=== PATIENT | male | born 1965 | race Caucasian/White ===

== ENCOUNTER 2017-05-24 09:21 | Emergency (ER) | payer OTHER ==
[2017-05-24 10:09] LABS: ADD MAN DIFF? NO
[2017-05-24] MEDS: SOD CHLORIDE 0.9% 1,000 ML IV (10:13)
[2017-05-24] MEDS: ONDANSETRON 4 MG INJ IV ×2 (10:13→11:35)
[2017-05-24 10:14] LABS: BASOPHILS % 0.5 % (0.0-2.0); EOSINOPHILS % 0.1 % (0.0-7.0); HEMATOCRIT 33.5 % (42.0-52.0); HEMOGLOBIN 11.6 g/dl (14.0-18.0); INR 1.04; LYMPHOCYTES # 1.3 10^3/ul (0.8-2.9); LYMPHOCYTES % 15.1 % (15.0-51.0); MEAN CORPUSCULAR HEMOGLOBIN 29.3 pg (29.0-33.0); MEAN CORPUSCULAR HGB CONC 34.6 g/dl (32.0-37.0); MEAN CORPUSCULAR VOLUME 84.6 fl (82.0-101.0); MEAN PLATELET VOLUME 11.6 fl (7.4-10.4); MONOCYTE # 0.3 10^3/ul (0.3-0.9); MONOCYTES % 3.4 % (0.0-11.0); NEUTROPHIL # 6.7 10^3/ul (1.6-7.5); NEUTROPHILS % 80.5 % (39.0-77.0); PLATELET COUNT 221 10^3/UL (140-415); PROTIME 13.7 Sec (11.9-14.9); PT RATIO 1.1; RED BLOOD COUNT 3.96 10^6/ul (4.70-6.10); RED CELL DISTRIBUTION WIDTH 12.7 % (11.5-14.5)
[2017-05-24 10:14] LABS: WHITE BLOOD COUNT 8.4 10^3/ul (4.8-10.8)
[2017-05-24 10:15] LABS: PARTIAL THROMBOPLASTIN TIME 24.8 Sec (25.0-35.0)
[2017-05-24 10:17] LABS: ALANINE AMINOTRANSFERASE 24 IU/L (13-69); ALBUMIN 4.3 g/dl (3.3-4.9); ALBUMIN/GLOBULIN RATIO 1.04; ALKALINE PHOSPHATASE 110 IU/L (42-121); ANION GAP 17 (8-16); ASPARTATE AMINO TRANSFERASE 23 IU/L (15-46); BILIRUBIN,INDIRECT 1.2 mg/dl (0-1.1); BILIRUBIN,TOTAL 1.2 mg/dl (0.2-1.3); BLOOD UREA NITROGEN 49 mg/dl (7-20); CALCIUM 9.3 mg/dl (8.4-10.2); CARBON DIOXIDE 23 mmol/L (21-31); CHLORIDE 104 mmol/L (97-110); GLUCOSE 286 mg/dl (70-220); LIPASE 104 U/L (23-300); POTASSIUM 4.3 mmol/L (3.5-5.1); SODIUM 140 mmol/L (135-144); TOTAL PROTEIN 8.4 g/dl (6.1-8.1)
[2017-05-24 10:32] LABS: LACTIC ACID 1.5 mmol/L (0.5-2.0)
[2017-05-24] MEDS: morphine 4 MG/ML VIAL IV (11:40)
[2017-05-24 12:14] LABS: ADD UMIC YES; UR ASCORBIC ACID NEGATIVE (NEGATIVE); UR BILIRUBIN (Dip) NEGATIVE (NEGATIVE); UR BLOOD (Dip) 1+ mg/dL (NEGATIVE); UR CLARITY CLEAR (CLEAR); UR COLOR YELLOW (YELLOW); UR GLUCOSE (Dip) 3+ mg/dL (NEGATIVE); UR KETONES (Dip) NEGATIVE (NEGATIVE); UR LEUKOCYTE ESTERASE (Dip) NEGATIVE Leu/ul (NEGATIVE); UR NITRITE (Dip) NEGATIVE (NEGATIVE); UR RBC 2 /HPF (0-5); UR SPECIFIC GRAVITY (Dip) 1.016 (1.003-1.030); UR TOTAL PROTEIN (Dip) 2+ mg/dl (NEGATIVE); UR UROBILINOGEN (Dip) NEGATIVE (NEGATIVE); UR WBC 1 /HPF (0-5)
== END 2017-05-24 13:12 | disposition home or self-care (01) ==
LOC: E/R 09:21
DX: I10 Essential (primary) hypertension (principal); E11.9 Type 2 diabetes mellitus without complications; R10.9 Unspecified abdominal pain; Z79.4 Long term (current) use of insulin
CPT/HCPCS: 36415; 74176; 80053; 81001; 82962; 83605; 83690; 85025; 85610; 85730; 93005; 96374; 96375; 96376; 99285-25

== ENCOUNTER 2017-10-01 13:27 | Emergency (ER) | payer OTHER ==
[2017-10-01] MEDS ORDERED: KETOROLAC 30 MG INJ IV (17:24)
[2017-10-01 17:37] LABS: ADD MAN DIFF? NO
[2017-10-01] MEDS: ONDANSETRON 4 MG INJ IV ×2 (17:42→22:58)
[2017-10-01] MEDS: SOD CHLORIDE 0.9% 1,000 ML IV (17:42)
[2017-10-01] MEDS: FAMOTIDINE 20 MG TAB PO (17:42)
[2017-10-01] MEDS: LIDOCAINE/MYLANTA 40 ML BTL PO (17:42)
[2017-10-01 17:43] LABS: WHITE BLOOD COUNT 9.2 10^3/ul (4.8-10.8)
[2017-10-01 17:43] LABS: BASOPHILS % 0.2 % (0.0-2.0); HEMATOCRIT 29.2 % (42.0-52.0); HEMOGLOBIN 10.4 g/dl (14.0-18.0); LYMPHOCYTES # 0.8 10^3/ul (0.8-2.9); LYMPHOCYTES % 8.6 % (15.0-51.0); MEAN CORPUSCULAR HEMOGLOBIN 30.2 pg (29.0-33.0); MEAN CORPUSCULAR HGB CONC 35.6 g/dl (32.0-37.0); MEAN CORPUSCULAR VOLUME 84.9 fl (82.0-101.0); MEAN PLATELET VOLUME 11.8 fl (7.4-10.4); MONOCYTE # 0.2 10^3/ul (0.3-0.9); MONOCYTES % 1.7 % (0.0-11.0); NEUTROPHIL # 8.2 10^3/ul (1.6-7.5); NEUTROPHILS % 89.1 % (39.0-77.0); PLATELET COUNT 155 10^3/UL (140-415); RED BLOOD COUNT 3.44 10^6/ul (4.70-6.10); RED CELL DISTRIBUTION WIDTH 13.1 % (11.5-14.5)
[2017-10-01] MEDS: morphine 2 MG INJ IV (17:43)
[2017-10-01 18:04] LABS: LACTIC ACID 2.1 mmol/L (0.5-2.0)
[2017-10-01 18:05] LABS: ALANINE AMINOTRANSFERASE 19 IU/L (13-69); ALBUMIN 4.3 g/dl (3.3-4.9); ALKALINE PHOSPHATASE 94 IU/L (42-121); ANION GAP 21 (8-16); ASPARTATE AMINO TRANSFERASE 27 IU/L (15-46); BILIRUBIN,INDIRECT 1.1 mg/dl (0-1.1); BILIRUBIN,TOTAL 1.1 mg/dl (0.2-1.3); BLOOD UREA NITROGEN 35 mg/dl (7-20); CALCIUM 9.6 mg/dl (8.4-10.2); CARBON DIOXIDE 23 mmol/L (21-31); CHLORIDE 105 mmol/L (97-110); CREATININE 1.16 mg/dl (0.61-1.24); GLUCOSE 266 mg/dl (70-220); LIPASE 65 U/L (23-300); POTASSIUM 4.6 mmol/L (3.5-5.1); SODIUM 144 mmol/L (135-144); TOTAL PROTEIN 8.2 g/dl (6.1-8.1)
[2017-10-01 18:16] LABS: TROPONIN-I < 0.010 ng/ml (0.000-0.120)
[2017-10-01] MEDS: METOCLOPRAMIDE 10 MG INJ IV (22:58)
[2017-10-01 23:12] LABS: AMPHETAMINE/METHAMPHETAMINE NEGATIVE (NEGATIVE); BARBITURATES NEGATIVE (NEGATIVE); BENZODIAZEPINES NEGATIVE (NEGATIVE); CANNABINOIDS NEGATIVE (NEGATIVE); COCAINE NEGATIVE (NEGATIVE); OPIATES POSITIVE (NEGATIVE)
[2017-10-01 23:24] LABS: ADD UMIC YES; UR ASCORBIC ACID NEGATIVE (NEGATIVE); UR BACTERIA FEW /HPF (NONE SEEN); UR BILIRUBIN (Dip) NEGATIVE (NEGATIVE); UR BLOOD (Dip) NEGATIVE (NEGATIVE); UR CLARITY CLEAR (CLEAR); UR COLOR YELLOW (YELLOW); UR GLUCOSE (Dip) 3+ mg/dL (NEGATIVE); UR KETONES (Dip) TRACE mg/dL (NEGATIVE); UR LEUKOCYTE ESTERASE (Dip) NEGATIVE Leu/ul (NEGATIVE); UR NITRITE (Dip) NEGATIVE (NEGATIVE); UR RBC 1 /HPF (0-5); UR SPECIFIC GRAVITY (Dip) 1.014 (1.003-1.030); UR TOTAL PROTEIN (Dip) 3+ mg/dl (NEGATIVE); UR UROBILINOGEN (Dip) NEGATIVE (NEGATIVE); UR WBC 1 /HPF (0-5)
== END 2017-10-02 00:51 | disposition home or self-care (01) ==
LOC: E/R 10-02 00:51
DX: N32.89 Other specified disorders of bladder (principal); R11.10 Vomiting, unspecified; E11.65 Type 2 diabetes mellitus with hyperglycemia; E86.0 Dehydration; I10 Essential (primary) hypertension; Z79.4 Long term (current) use of insulin
CPT/HCPCS: 36415; 74176; 80053; 80307; 81001; 82962; 83605; 83690; 84484; 85025; 93005; 96374; 96375; 96376; 99285-25

== ENCOUNTER 2017-10-03 16:13 | Inpatient (IN) | payer OTHER ==
[2017-10-03] MEDS: morphine 4 MG/ML VIAL IV (17:57)
[2017-10-03] MEDS: ONDANSETRON 4 MG INJ IV (17:57)
[2017-10-03] MEDS: PANTOPRAZOLE 40 MG INJ IV (17:57)
[2017-10-03 18:04] LABS: ADD MAN DIFF? NO
[2017-10-03 18:05] LABS: WHITE BLOOD COUNT 10.6 10^3/ul (4.8-10.8)
[2017-10-03 18:05] LABS: BASOPHILS % 0.1 % (0.0-2.0); HEMATOCRIT 29.1 % (42.0-52.0); HEMOGLOBIN 10.4 g/dl (14.0-18.0); LYMPHOCYTES # 0.8 10^3/ul (0.8-2.9); LYMPHOCYTES % 7.4 % (15.0-51.0); MEAN CORPUSCULAR HEMOGLOBIN 29.9 pg (29.0-33.0); MEAN CORPUSCULAR HGB CONC 35.7 g/dl (32.0-37.0); MEAN CORPUSCULAR VOLUME 83.6 fl (82.0-101.0); MEAN PLATELET VOLUME 11.4 fl (7.4-10.4); MONOCYTE # 0.5 10^3/ul (0.3-0.9); MONOCYTES % 4.8 % (0.0-11.0); NEUTROPHIL # 9.2 10^3/ul (1.6-7.5); NEUTROPHILS % 87.3 % (39.0-77.0); PLATELET COUNT 176 10^3/UL (140-415); RED BLOOD COUNT 3.48 10^6/ul (4.70-6.10); RED CELL DISTRIBUTION WIDTH 12.7 % (11.5-14.5)
[2017-10-03 18:25] LABS: INR 0.97; PARTIAL THROMBOPLASTIN TIME 21.3 Sec (25.0-35.0)
[2017-10-03 18:35] LABS: ALANINE AMINOTRANSFERASE 19 IU/L (13-69); ALBUMIN 4.1 g/dl (3.3-4.9); ALKALINE PHOSPHATASE 99 IU/L (42-121); ANION GAP 15 (8-16); ASPARTATE AMINO TRANSFERASE 24 IU/L (15-46); BILIRUBIN,INDIRECT 1.4 mg/dl (0-1.1); BILIRUBIN,TOTAL 1.4 mg/dl (0.2-1.3); BLOOD UREA NITROGEN 27 mg/dl (7-20); CALCIUM 9.5 mg/dl (8.4-10.2); CARBON DIOXIDE 29 mmol/L (21-31); CHLORIDE 100 mmol/L (97-110); CREATININE 1.15 mg/dl (0.61-1.24); GLUCOSE 246 mg/dl (70-220); POTASSIUM 4.4 mmol/L (3.5-5.1); SODIUM 140 mmol/L (135-144); TOTAL PROTEIN 7.8 g/dl (6.1-8.1)
[2017-10-03 18:46] LABS: TROPONIN-I < 0.012 ng/ml (0.000-0.120)
[2017-10-03] MEDS ORDERED: ONDANSETRON 4 MG INJ IV ×2 (20:00→21:00)
[2017-10-03] MEDS ORDERED: ACETAMINOPHEN 325 MG TAB PO ×2 (20:00→21:00)
[2017-10-03] MEDS ORDERED: NACL 0.9% 3 ML SYG IV (21:00)
[2017-10-03] MEDS ORDERED: hydrALAzine 20 MG INJ IV (21:00)
[2017-10-03] MEDS: SOD CHLORIDE 0.9% 1,000 ML IV (22:44)
[2017-10-03] MEDS: hydrALAzine 20 MG INJ IV (22:49)
[2017-10-04 01:27] LABS: ADD MAN DIFF? NO
[2017-10-04 01:30] LABS: BASOPHILS % 0.1 % (0.0-2.0); HEMATOCRIT 25.8 % (42.0-52.0); HEMOGLOBIN 9.2 g/dl (14.0-18.0); LYMPHOCYTES % 20.8 % (15.0-51.0); MEAN CORPUSCULAR HEMOGLOBIN 30.3 pg (29.0-33.0); MEAN CORPUSCULAR HGB CONC 35.7 g/dl (32.0-37.0); MEAN CORPUSCULAR VOLUME 84.9 fl (82.0-101.0); MEAN PLATELET VOLUME 11.8 fl (7.4-10.4); MONOCYTE # 1.1 10^3/ul (0.3-0.9); MONOCYTES % 11.2 % (0.0-11.0); NEUTROPHIL # 6.6 10^3/ul (1.6-7.5); NEUTROPHILS % 67.6 % (39.0-77.0); PLATELET COUNT 161 10^3/UL (140-415); RED BLOOD COUNT 3.04 10^6/ul (4.70-6.10); RED CELL DISTRIBUTION WIDTH 12.9 % (11.5-14.5)
[2017-10-04 01:30] LABS: WHITE BLOOD COUNT 9.8 10^3/ul (4.8-10.8)
[2017-10-04] MEDS ORDERED: GLUCOSE GEL 15 GRAM TUBE PO ×2 (03:30)
[2017-10-04] MEDS ORDERED: DEXTROSE 50% 50 ML SYRINGE IV ×2 (03:30)
[2017-10-04] MEDS ORDERED: GLUCOSE GEL 15 GRAM TUBE BUCCAL (03:30)
[2017-10-04] MEDS ORDERED: GLUCAGON 1 MG INJ IM (03:30)
[2017-10-04 05:11] LABS: ADD MAN DIFF? NO
[2017-10-04 05:19] LABS: WHITE BLOOD COUNT 8.8 10^3/ul (4.8-10.8)
[2017-10-04 05:19] LABS: BASOPHILS % 0.2 % (0.0-2.0); EOSINOPHILS % 0.1 % (0.0-7.0); HEMATOCRIT 27.5 % (42.0-52.0); HEMOGLOBIN 9.6 g/dl (14.0-18.0); LYMPHOCYTES # 1.8 10^3/ul (0.8-2.9); LYMPHOCYTES % 20.4 % (15.0-51.0); MEAN CORPUSCULAR HEMOGLOBIN 29.9 pg (29.0-33.0); MEAN CORPUSCULAR HGB CONC 34.9 g/dl (32.0-37.0); MEAN CORPUSCULAR VOLUME 85.7 fl (82.0-101.0); MONOCYTE # 1.1 10^3/ul (0.3-0.9); MONOCYTES % 11.9 % (0.0-11.0); NEUTROPHIL # 5.9 10^3/ul (1.6-7.5); NEUTROPHILS % 67.1 % (39.0-77.0); PLATELET COUNT 166 10^3/UL (140-415); RED BLOOD COUNT 3.21 10^6/ul (4.70-6.10); RED CELL DISTRIBUTION WIDTH 12.9 % (11.5-14.5)
[2017-10-04 05:53] LABS: MAGNESIUM 2.3 mg/dl (1.7-2.5)
[2017-10-04 05:53] LABS: CHOL/HDL RATIO 4.4 RATIO; CHOLESTEROL 156 mg/dl (100-200); HDL CHOLESTEROL 35 mg/dl (28-71); LDL CHOLESTEROL,CALCULATED 81 mg/dl; TRIGLYCERIDES 198 mg/dl (0-149)
[2017-10-04] MEDS ORDERED: PANTOPRAZOLE 40 MG INJ IV (06:00)
[2017-10-04] MEDS: PANTOPRAZOLE 40 MG INJ IV ×2 (06:10→19:06)
[2017-10-04 08:23] LABS: HEMOGLOBIN A1C 7.6 % (0-5.9)
[2017-10-04 08:34] LABS: ADD UMIC YES; UR ASCORBIC ACID 20 mg/dL (NEGATIVE); UR BACTERIA FEW /HPF (NONE SEEN); UR BILIRUBIN (Dip) NEGATIVE (NEGATIVE); UR BLOOD (Dip) NEGATIVE (NEGATIVE); UR CLARITY SLIGHTLY CLOUDY (CLEAR); UR COLOR YELLOW (YELLOW); UR GLUCOSE (Dip) 3+ mg/dL (NEGATIVE); UR KETONES (Dip) NEGATIVE (NEGATIVE); UR LEUKOCYTE ESTERASE (Dip) NEGATIVE Leu/ul (NEGATIVE); UR NITRITE (Dip) NEGATIVE (NEGATIVE); UR RBC 4 /HPF (0-5); UR SPECIFIC GRAVITY (Dip) 1.015 (1.003-1.030); UR TOTAL PROTEIN (Dip) 3+ mg/dl (NEGATIVE); UR UROBILINOGEN (Dip) NEGATIVE (NEGATIVE); UR WBC 2 /HPF (0-5)
[2017-10-04] MEDS: SOD CHLORIDE 0.9% 1,000 ML IV ×3 (08:36→20:54)
[2017-10-04] MEDS: morphine 2 MG INJ IV ×3 (08:36→17:31)
[2017-10-04] MEDS: INSULIN ASPART [NOVOLOG] 3 ML PEN SC ×5 (09:00→20:48)
[2017-10-04] MEDS: INSULIN GLARGINE [LANTus] (100 UNITS/ML) SYG SC (12:00)
[2017-10-04 16:48] LABS: ADD MAN DIFF? NO
[2017-10-04 16:55] LABS: BASOPHILS % 0.5 % (0.0-2.0); EOSINOPHILS % 0.3 % (0.0-7.0); HEMATOCRIT 29.7 % (42.0-52.0); HEMOGLOBIN 10.3 g/dl (14.0-18.0); LYMPHOCYTES # 2.6 10^3/ul (0.8-2.9); LYMPHOCYTES % 29.5 % (15.0-51.0); MEAN CORPUSCULAR HEMOGLOBIN 29.9 pg (29.0-33.0); MEAN CORPUSCULAR HGB CONC 34.7 g/dl (32.0-37.0); MEAN CORPUSCULAR VOLUME 86.3 fl (82.0-101.0); MEAN PLATELET VOLUME 11.8 fl (7.4-10.4); MONOCYTE # 0.8 10^3/ul (0.3-0.9); MONOCYTES % 8.9 % (0.0-11.0); NEUTROPHIL # 5.3 10^3/ul (1.6-7.5); NEUTROPHILS % 60.5 % (39.0-77.0); PLATELET COUNT 174 10^3/UL (140-415); RED BLOOD COUNT 3.44 10^6/ul (4.70-6.10); RED CELL DISTRIBUTION WIDTH 13.1 % (11.5-14.5)
[2017-10-04 16:55] LABS: WHITE BLOOD COUNT 8.7 10^3/ul (4.8-10.8)
[2017-10-04] MEDS: PROPOFOL 20 ML (19:33)
[2017-10-05] MEDS: morphine 2 MG INJ IV (00:02)
[2017-10-05] MEDS ORDERED: ACCU-CHEK XX (02:00)
[2017-10-05] MEDS: LORAZEPAM 0.5 MG TAB PO (03:47)
[2017-10-05] MEDS: PANTOPRAZOLE 40 MG INJ IV ×2 (06:22→17:05)
[2017-10-05] MEDS: INSULIN ASPART [NOVOLOG] 3 ML PEN SC ×3 (08:40→17:05)
[2017-10-05] MEDS: INSULIN GLARGINE [LANTus] (100 UNITS/ML) SYG SC (08:41)
[2017-10-05] MEDS: SOD CHLORIDE 0.9% 1,000 ML IV (12:13)
== END 2017-10-05 18:50 | disposition home or self-care (01) | DRG 379 ==
LOC: MS1 10-05 06:15 → E/R 16:13 → MS1 19:31
PROC: 0DJ08ZZ Inspection of Upper Intestinal Tract, Via Natural or Artificial Opening Endoscopic (ICD-10-PCS; principal; 2017-10-04 13:10)
DX: K29.71 Gastritis, unspecified, with bleeding (principal); R33.9 Retention of urine, unspecified; I10 Essential (primary) hypertension; E11.9 Type 2 diabetes mellitus without complications; E78.5 Hyperlipidemia, unspecified; Z87.19 Personal history of other diseases of the digestive system; R10.13 Epigastric pain
CPT/HCPCS: 36415; 74018; 80053; 80061; 81001; 82962; 83036; 83735; 84443; 84484; 85025; 85610; 85730; 86850; 86900; 86901; 93005; 96374; 96375; 99285-25

== ENCOUNTER 2017-10-23 09:49 | Inpatient (IN) | payer OTHER ==
[2017-10-23 10:20] LABS: ADD MAN DIFF? NO
[2017-10-23 10:24] LABS: BASOPHIL # 0.1 10^3/ul (0.0-0.1); BASOPHILS % 0.7 % (0.0-2.0); EOSINOPHILS # 0.4 10^3/ul (0.0-0.5); EOSINOPHILS % 5.9 % (0.0-7.0); HEMATOCRIT 29.3 % (42.0-52.0); HEMOGLOBIN 9.8 g/dl (14.0-18.0); LYMPHOCYTES # 1.6 10^3/ul (0.8-2.9); LYMPHOCYTES % 21.3 % (15.0-51.0); MEAN CORPUSCULAR HEMOGLOBIN 29.3 pg (29.0-33.0); MEAN CORPUSCULAR HGB CONC 33.4 g/dl (32.0-37.0); MEAN CORPUSCULAR VOLUME 87.7 fl (82.0-101.0); MEAN PLATELET VOLUME 11.6 fl (7.4-10.4); MONOCYTE # 0.5 10^3/ul (0.3-0.9); MONOCYTES % 7.4 % (0.0-11.0); NEUTROPHIL # 4.7 10^3/ul (1.6-7.5); NEUTROPHILS % 64.3 % (39.0-77.0); PLATELET COUNT 169 10^3/UL (140-415); RED BLOOD COUNT 3.34 10^6/ul (4.70-6.10); RED CELL DISTRIBUTION WIDTH 13.2 % (11.5-14.5)
[2017-10-23 10:24] LABS: WHITE BLOOD COUNT 7.3 10^3/ul (4.8-10.8)
[2017-10-23 10:52] LABS: ANION GAP 16 (8-16); BLOOD UREA NITROGEN 27 mg/dl (7-20); CALCIUM 9.8 mg/dl (8.4-10.2); CARBON DIOXIDE 25 mmol/L (21-31); CHLORIDE 106 mmol/L (97-110); CREATININE 1.41 mg/dl (0.61-1.24); GLUCOSE 129 mg/dl (70-220); SODIUM 140 mmol/L (135-144)
[2017-10-23 10:55] LABS: POTASSIUM 6.6 mmol/L (3.5-5.1)
[2017-10-23] MEDS: SOD CHLORIDE 0.9% 500 ML IV (11:21)
[2017-10-23] MEDS: FUROSEMIDE 40 MG INJ IV (11:21)
[2017-10-23] MEDS: ALBUTEROL 0.5% (NEB) 2.5 MG/0.5 ML AMP INH (11:22)
[2017-10-23] MEDS: DEXTROSE 50% 50 ML SYRINGE IV (11:27)
[2017-10-23] MEDS: INSULIN REGULAR, HUMAN 100 UNIT/1 ML 3ML VIAL IVP (11:28)
[2017-10-23] MEDS: NA POLYST SULFON 15 GM/60 ML BTL PO (11:54)
[2017-10-23 11:59] LABS: MAGNESIUM 1.9 mg/dl (1.7-2.5)
[2017-10-23 12:00] LABS: PHOSPHORUS 4.3 mg/dl (2.5-4.9)
[2017-10-23] MEDS ORDERED: DOCUSATE SODIUM 100 MG CAP PO (12:00)
[2017-10-23] MEDS ORDERED: NA PHOSPHATE/BIPHOS 133 ML ENEMA PR (12:00)
[2017-10-23] MEDS ORDERED: HYDROCODONE/APAP (5/325) TAB PO (12:00)
[2017-10-23] MEDS ORDERED: MAGNESIUM HYDROXIDE 30ML CUP PO (12:00)
[2017-10-23] MEDS ORDERED: NITROGLYCERIN (SL) 0.4 MG TAB SL ×2 (12:00→15:30)
[2017-10-23] MEDS ORDERED: ONDANSETRON 4 MG INJ IV ×2 (12:00)
[2017-10-23] MEDS ORDERED: LORAZEPAM 2 MG INJ IV (12:00)
[2017-10-23] MEDS ORDERED: hydrALAzine 20 MG INJ IV (12:00)
[2017-10-23] MEDS ORDERED: morphine 2 MG INJ IV (12:00)
[2017-10-23] MEDS ORDERED: ALBUTEROL/IPRATROPIUM (NEB) 3 ML AMP HHN (12:00)
[2017-10-23] MEDS ORDERED: NACL 0.9% 3 ML SYG IV (12:00)
[2017-10-23] MEDS ORDERED: ACETAMINOPHEN 325 MG TAB PO ×2 (12:00)
[2017-10-23 12:37] LABS: FREE T4 (FREE THYROXINE) 1.33 ng/dl (0.64-1.79)
[2017-10-23] MEDS ORDERED: GLUCOSE GEL 15 GRAM TUBE BUCCAL (13:00)
[2017-10-23] MEDS ORDERED: DEXTROSE 50% 50 ML SYRINGE IV ×2 (13:00)
[2017-10-23] MEDS ORDERED: GLUCOSE GEL 15 GRAM TUBE PO ×2 (13:00)
[2017-10-23] MEDS ORDERED: GLUCAGON 1 MG INJ IM (13:00)
[2017-10-23] MEDS: SOD CHLORIDE 0.9% 1,000 ML IV ×2 (13:03→21:49)
[2017-10-23] MEDS: INSULIN ASPART [NOVOLOG] 3 ML PEN SC ×3 (14:26→20:29)
[2017-10-23] MEDS: ASPIRIN (EC) 81 MG TAB PO (16:55)
[2017-10-23 17:07] LABS: ANION GAP 14 (8-16); BLOOD UREA NITROGEN 25 mg/dl (7-20); CALCIUM 8.9 mg/dl (8.4-10.2); CARBON DIOXIDE 24 mmol/L (21-31); CHLORIDE 110 mmol/L (97-110); GLUCOSE 179 mg/dl (70-220); POTASSIUM 4.7 mmol/L (3.5-5.1); SODIUM 143 mmol/L (135-144)
[2017-10-23 17:18] LABS: TROPONIN-I 0.036 ng/ml (0.000-0.120)
[2017-10-23] MEDS: ATORVASTATIN 10 MG TAB PO (20:16)
[2017-10-23] MEDS: HEPARIN 5,000 UNIT/0.5 ML VIAL SC (20:21)
[2017-10-23] MEDS ORDERED: NON-FORMULARY/PATIENT OWN MED (Simvastatin* (Zocor*) 20 MG) PO (21:00)
[2017-10-23] MEDS: INSULIN GLARGINE [LANTus] (100 UNITS/ML) SYG SC (22:30)
[2017-10-23 22:56] LABS: TROPONIN-I 0.046 ng/ml (0.000-0.120)
[2017-10-24] MEDS: ACCU-CHEK XX (02:43)
[2017-10-24] MEDS: SOD CHLORIDE 0.9% 1,000 ML IV (02:43)
[2017-10-24] MEDS ORDERED: VITAMIN A & D 5 GM OINT PACKET TOP (02:45)
[2017-10-24 03:28] LABS: ADD MAN DIFF? NO
[2017-10-24 03:32] LABS: BASOPHILS % 0.5 % (0.0-2.0); EOSINOPHILS # 0.3 10^3/ul (0.0-0.5); EOSINOPHILS % 4.3 % (0.0-7.0); HEMATOCRIT 25.1 % (42.0-52.0); HEMOGLOBIN 8.4 g/dl (14.0-18.0); LYMPHOCYTES # 1.7 10^3/ul (0.8-2.9); LYMPHOCYTES % 26.8 % (15.0-51.0); MEAN CORPUSCULAR HGB CONC 33.5 g/dl (32.0-37.0); MEAN CORPUSCULAR VOLUME 89.6 fl (82.0-101.0); MEAN PLATELET VOLUME 11.2 fl (7.4-10.4); MONOCYTE # 0.6 10^3/ul (0.3-0.9); MONOCYTES % 9.4 % (0.0-11.0); NEUTROPHIL # 3.8 10^3/ul (1.6-7.5); NEUTROPHILS % 58.7 % (39.0-77.0); PLATELET COUNT 135 10^3/UL (140-415); RED CELL DISTRIBUTION WIDTH 12.9 % (11.5-14.5)
[2017-10-24 03:32] LABS: WHITE BLOOD COUNT 6.5 10^3/ul (4.8-10.8)
[2017-10-24 03:40] LABS: HEMOGLOBIN A1C 7.4 % (0-5.9)
[2017-10-24 03:50] LABS: ANION GAP 9 (8-16); BLOOD UREA NITROGEN 19 mg/dl (7-20); CALCIUM 8.6 mg/dl (8.4-10.2); CARBON DIOXIDE 26 mmol/L (21-31); CHLORIDE 110 mmol/L (97-110); CHOL/HDL RATIO 2.9 RATIO; CREATININE 1.14 mg/dl (0.61-1.24); GLUCOSE 111 mg/dl (70-220); HDL CHOLESTEROL 43 mg/dl (28-71); LDL CHOLESTEROL,CALCULATED 65 mg/dl; MAGNESIUM 1.5 mg/dl (1.7-2.5); PHOSPHORUS 4.2 mg/dl (2.5-4.9); POTASSIUM 4.7 mmol/L (3.5-5.1); SODIUM 140 mmol/L (135-144); TRIGLYCERIDES 96 mg/dl (0-149)
[2017-10-24 03:50] LABS: CHOLESTEROL 127 mg/dl (100-200)
[2017-10-24] MEDS: PANTOPRAZOLE (EC) 40 MG TAB PO (06:40)
[2017-10-24] MEDS ORDERED: NON-FORMULARY/PATIENT OWN MED (Omeprazole* 40 MG) PO (07:00)
[2017-10-24] MEDS: INSULIN ASPART [NOVOLOG] 3 ML PEN SC ×2 (07:55→11:50)
[2017-10-24] MEDS: ASPIRIN (EC) 81 MG TAB PO (08:00)
[2017-10-24] MEDS: HEPARIN 5,000 UNIT/0.5 ML VIAL SC (08:07)
[2017-10-24] MEDS: INSULIN GLARGINE [LANTus] (100 UNITS/ML) SYG SC (08:07)
[2017-10-24] MEDS: AMLODIPINE 5 MG TAB PO (08:08)
[2017-10-24] MEDS ORDERED: INSULIN GLARGINE [LANTus] (100 UNITS/ML) SYG SC (09:00)
[2017-10-24] MEDS: MAGNESIUM SULFATE 2 GM/50 ML 50 ML IVPB (12:37)
== END 2017-10-24 16:37 | disposition home or self-care (01) | DRG 684 ==
LOC: E/R 09:49 → TEL 11:33
DX: N17.9 Acute kidney failure, unspecified (principal); I10 Essential (primary) hypertension; E11.9 Type 2 diabetes mellitus without complications; E78.5 Hyperlipidemia, unspecified; K29.70 Gastritis, unspecified, without bleeding; E87.5 Hyperkalemia; Z79.4 Long term (current) use of insulin
CPT/HCPCS: 71045; 80048; 80061; 82962; 83036; 83735; 84100; 84439; 84443; 84484; 85025; 93005; 93306; 94664; 96374; 96375; 99291-25

== ENCOUNTER 2017-11-19 18:03 | Emergency (ER) | payer OTHER ==
[2017-11-19] MEDS: SOD CHLORIDE 0.9% 500 ML IV (19:29)
[2017-11-19 19:33] LABS: ADD MAN DIFF? NO
[2017-11-19 19:35] LABS: BASOPHIL # 0.1 10^3/ul (0.0-0.1); BASOPHILS % 0.6 % (0.0-2.0); EOSINOPHILS # 0.5 10^3/ul (0.0-0.5); EOSINOPHILS % 6.4 % (0.0-7.0); HEMATOCRIT 27.4 % (42.0-52.0); HEMOGLOBIN 9.3 g/dl (14.0-18.0); LYMPHOCYTES # 2.2 10^3/ul (0.8-2.9); LYMPHOCYTES % 26.9 % (15.0-51.0); MEAN CORPUSCULAR HGB CONC 33.9 g/dl (32.0-37.0); MEAN CORPUSCULAR VOLUME 88.4 fl (82.0-101.0); MEAN PLATELET VOLUME 11.8 fl (7.4-10.4); MONOCYTE # 0.9 10^3/ul (0.3-0.9); MONOCYTES % 11.4 % (0.0-11.0); NEUTROPHIL # 4.4 10^3/ul (1.6-7.5); NEUTROPHILS % 54.4 % (39.0-77.0); PLATELET COUNT 140 10^3/UL (140-415); RED CELL DISTRIBUTION WIDTH 12.8 % (11.5-14.5)
[2017-11-19 19:55] LABS: ALANINE AMINOTRANSFERASE 21 IU/L (13-69); ALBUMIN 3.7 g/dl (3.3-4.9); ALBUMIN/GLOBULIN RATIO 0.97; ALKALINE PHOSPHATASE 106 IU/L (42-121); ANION GAP 13 (8-16); ASPARTATE AMINO TRANSFERASE 25 IU/L (15-46); BILIRUBIN,INDIRECT 0.6 mg/dl (0-1.1); BILIRUBIN,TOTAL 0.6 mg/dl (0.2-1.3); BLOOD UREA NITROGEN 25 mg/dl (7-20); CALCIUM 9.8 mg/dl (8.4-10.2); CARBON DIOXIDE 23 mmol/L (21-31); CHLORIDE 109 mmol/L (97-110); CREATININE 1.34 mg/dl (0.61-1.24); GLUCOSE 158 mg/dl (70-220); LIPASE 121 U/L (23-300); POTASSIUM 4.9 mmol/L (3.5-5.1); SODIUM 140 mmol/L (135-144); TOTAL PROTEIN 7.5 g/dl (6.1-8.1)
[2017-11-19 20:04] LABS: ADD UMIC YES; UR ASCORBIC ACID NEGATIVE (NEGATIVE); UR BILIRUBIN (Dip) NEGATIVE (NEGATIVE); UR BLOOD (Dip) NEGATIVE (NEGATIVE); UR CLARITY CLEAR (CLEAR); UR COLOR YELLOW (YELLOW); UR GLUCOSE (Dip) 1+ mg/dL (NEGATIVE); UR KETONES (Dip) NEGATIVE (NEGATIVE); UR LEUKOCYTE ESTERASE (Dip) NEGATIVE Leu/ul (NEGATIVE); UR NITRITE (Dip) NEGATIVE (NEGATIVE); UR RBC 1 /HPF (0-5); UR SPECIFIC GRAVITY (Dip) 1.011 (1.003-1.030); UR TOTAL PROTEIN (Dip) 2+ mg/dl (NEGATIVE); UR UROBILINOGEN (Dip) NEGATIVE (NEGATIVE); UR WBC 1 /HPF (0-5)
[2017-11-19 20:06] LABS: TROPONIN-I < 0.012 ng/ml (0.000-0.120)
== END 2017-11-19 20:34 | disposition home or self-care (01) ==
LOC: E/R 18:03
DX: N28.9 Disorder of kidney and ureter, unspecified (principal); D64.9 Anemia, unspecified; I10 Essential (primary) hypertension; E11.9 Type 2 diabetes mellitus without complications; Z79.4 Long term (current) use of insulin
CPT/HCPCS: 36415; 80053; 81001; 83690; 84484; 85025; 93005; 96360; 99284-25